=== PATIENT | male | born 1955 | race Caucasian/White ===

== ENCOUNTER 2020-11-14 17:27 | Emergency (ER) | payer MEDICARE ==
[2020-11-14 18:29] VITALS: BP 195/86
--- NOTE | 2020-11-14 18:40 | ER Document Report ---
ED Medical Screen (RME) - General Chief Complaint: Dizziness Stated Complaint: HIGH BLOOD PRESSURE Time Seen by Provider: 11/14/20 18:26 Mode of Arrival: Wheelchair Information source: Patient, Relative - Daughter - HPI Patient complains to provider of: dizziness, elevated bp, syncope Notes: 11/14/20 18:39 Patient here with complaints of some intermittent feelings of dizziness today. This happened earlier this morning and throughout the afternoon while he was at home. He actually had one episode where he felt he was going to pass out and had a syncopal episode on a carpeted floor without any head injury or other injury. Patient has a history of hypertension, he did not take his losartan/hydrochlorthiazide this morning. Currently does complain of a headache and some mild neck pain with intermittent feelings of dizziness. He also complains of occasional chest pain. No fever. No blood thinners. Exam: Nontoxic, no distress. Lungs clear to go throughout. Heart sounds normal. Pale nerves II through XII are grossly intact. Normal [id number]. Normal strength and sensation bilaterally. No pronator drift. An initial examination was made on the patient as part of the triage process, and it was determined a more comprehensive evaluation was necessary. Initial orders were placed and patient was transferred to another provider in the ED who assumed care and finished evaluation and plan. - Related Data Allergies/Adverse Reactions: No Known Allergies Allergy (Unverified 11/14/20 18:25) Home Medications: OTC suppliments/ losartan/hctz 100-25 states takes 3/4 of pill daily (RX for 1 tab daily) Past Medical History - Social History Chew tobacco use (# tins/day): No Frequency of alcohol use: None Drug Abuse: None Physical Exam - Vital signs Vitals: Temp Pulse Resp BP Pulse Ox 97.4 F 62 18 191/99 H 98 11/14/20 17:43 11/14/20 17:43 11/14/20 17:43 11/14/20 17:43 11/14/20 17:43 Course - Vital Signs Vital signs: Temp Pulse Resp BP Pulse Ox 97.4 F 63 20 195/86 H 98 11/14/20 17:43 11/14/20 18:28 11/14/20 18:28 11/14/20 18:28 11/14/20 18:28
--- NOTE | 2020-11-14 19:22 | RADIOLOGY REPORT (SQ) ---
EXAM DESCRIPTION: CHEST SINGLE VIEW IMAGES COMPLETED DATE/TIME: 11/14/2020 6:50 pm REASON FOR STUDY: dizziness, ches tpain COMPARISON: None. EXAM PARAMETERS: NUMBER OF VIEWS: One view. TECHNIQUE: Single frontal radiographic view of the chest acquired. RADIATION DOSE: NA LIMITATIONS: None. FINDINGS: LUNGS AND PLEURA: Ill-defined opacification in the retrocardiac left with slight blurring of the left hemidiaphragm. MEDIASTINUM AND HILAR STRUCTURES: No masses. Contour normal. HEART AND VASCULAR STRUCTURES: Heart normal in size. Normal vasculature. BONES: No acute findings. HARDWARE: None in the chest. OTHER: None. IMPRESSION: Cannot exclude a minimal left lower lobe pneumonia. TECHNICAL DOCUMENTATION: JOB ID: [id number] [employer]- All Rights Reserved Reading location - IP/workstation name: [email or web address]
--- NOTE | 2020-11-14 20:16 | RADIOLOGY REPORT (SQ) ---
EXAM DESCRIPTION: CT HEAD WITHOUT IV CONTRAST COMPLETED DATE/TME: 11/14/2020 18:59 CLINICAL HISTORY: 65 years, Male, dizziness, headache, syncope EXAM DESCRIPTION: CT HEAD WITHOUT CLINICAL HISTORY: dizziness, headache, syncope COMPARISON: None Available TECHNIQUE: Contiguous axial CT images of the head were obtained. Coronal and sagittal reconstructions were created from the axial data. This exam was performed according to our departmental dose-optimization program, which includes automated exposure control, adjustment of the mA and/or kV according to patient size and/or use of iterative reconstruction technique. FINDINGS: Axial images are not currently available. Addendum will be dictated when they are. There is no evidence of acute mass, mass effect, midline shift or hemorrhage. The ventricles and extra-axial CSF spaces are unremarkable. The brain parenchyma appears normal for the patient's age. No acute abnormalities of the bones is seen. IMPRESSION: No acute intracranial abnormality.
[2020-11-14 20:56] LABS: ABSOLUTE MONOCYTES (AUTO) 0.4 10^3/uL (0.1-1.4); ABSOLUTE NEUT (AUTO) 11.7 10^3/uL (1.7-8.2); BASOPHILS % (AUTO) 0.3 % (0-2); HEMATOCRIT 42.9 % (37.9-51.0); HEMOGLOBIN 14.6 g/dL (13.5-17.0); LYMPHOCYTES % (AUTO) 7.7 % (13-45); MEAN CORPUSCULAR VOLUME 88 fl (80-97); MONOCYTES % (AUTO) 3.2 % (3-13); PLATELET COUNT 185 10^3/uL (150-450); RED BLOOD COUNT 4.86 10^6/uL (4.35-5.55); RED CELL DISTRIBUTION WIDTH 13.6 % (11.5-14.0); SEGMENTED NEUTROPHILS % (AUTO) 88.8 % (42-78); TOTAL CELLS COUNTED % (AUTO) 100 %; WHITE BLOOD COUNT 13.2 10^3/uL (4.0-10.5)
[2020-11-14 21:00] LABS: INTERNATIONAL RATION (INR) 0.87; PROTHROMBIN TIME 12.1 SEC (11.4-15.4)
[2020-11-14 21:01] LABS: PARTIAL THROMBOPLASTIN TIME 27.9 SEC (23.5-35.8)
[2020-11-14 21:13] LABS: ALBUMIN 4.8 g/dL (3.5-5.0); ALKALINE PHOSPHATASE 155 U/L (38-126); ANION GAP 8 (5-19); ASPARTATE AMINO TRANSFERASE 45 U/L (17-59); BILIRUBIN,DIRECT 0.1 mg/dL (0.0-0.4); BILIRUBIN,TOTAL 0.6 mg/dL (0.2-1.3); BLOOD UREA NITROGEN 18 mg/dL (7-20); CALCIUM 9.6 mg/dL (8.4-10.2); CARBON DIOXIDE 31 mmol/L (22-30); CHLORIDE 99 mmol/L (98-107); GLUCOSE 126 mg/dL (75-110); POTASSIUM 4.3 mmol/L (3.6-5.0); TOTAL PROTEIN 8.4 g/dL (6.3-8.2)
--- NOTE | 2020-11-14 21:14 | ER Document Report ---
ED General - General Chief Complaint: Dizziness Stated Complaint: HIGH BLOOD PRESSURE Time Seen by Provider: 11/14/20 18:26 Mode of Arrival: Wheelchair - HPI Notes: Patient is a 65-year-old gentleman who presents the emergency department for evaluation of a syncopal episode. This morning he went to the bathroom, just to urinate. He washed his hands, walked out of the bathroom, and had a vertiginous type sensation. The room was spinning. He may have had some ringing in his ears but he does not quite remember. This lasted a few seconds, he sat down, and felt better. He had another episode similar to that later in the day. He had a third episode after finishing preparing dinner, at which point he slowly went down to his knees and had a full syncopal episode. This was witnessed. His upper arms were shaking, but then he came around. At this point he states he feels little bit weak but denies any other acute symptoms. He has had no recent URI. No fevers or chills. No anosmia. He denies any chest pain or shortness of breath. No diarrhea, eating and drinking normally. The patient notes that he did not take his blood pressure medication today, states "I just forgot." - Related Data Allergies/Adverse Reactions: No Known Allergies Allergy (Unverified 11/14/20 18:25) Home Medications: OTC suppliments/ losartan/hctz 100-25 states takes 3/4 of pill daily (RX for 1 tab daily) Past Medical History - General Information source: Patient, Relative - Daughter - Social History Smoking Status: Never Smoker Chew tobacco use (# tins/day): No Frequency of alcohol use: None Drug Abuse: None Family History: Reviewed & Not Pertinent - Past Medical History Cardiac Medical History: Reports: Hx Coronary Artery Disease - History of angioplasty, Hx Hypercholesterolemia, Hx Hypertension Pulmonary Medical History: Reports: None Neurological Medical History: Reports: Hx Seizures - Seizures in his 20s after head injury, none since age 27. Denies: Hx Cerebrovascular Accident Endocrine Medical History: Denies: Hx Diabetes Mellitus Type 2 Renal/ Medical History: Denies: Hx End Stage Renal Disease, Hx Peritoneal Dialysis, Hx Renal Insufficiency Malignancy Medical History: Reports None GI Medical History: Denies: Hx Cirrhosis, Hx Crohn's Disease, Hx Gastritis, Hx Ulcerative Colitis Musculoskeletal Medical History: Reports Other - Dupuytren's contractures fourth and fifth fingers bilaterally Review of Systems - Review of Systems Constitutional: No symptoms reported EENT: No symptoms reported Cardiovascular: See HPI Respiratory: No symptoms reported Gastrointestinal: No symptoms reported Genitourinary: No symptoms reported Musculoskeletal: No symptoms reported Skin: No symptoms reported Neurological/Psychological: See HPI Physical Exam - Vital signs Vitals: Temp Pulse Resp BP Pulse Ox 97.4 F 62 18 191/99 H 98 11/14/20 17:43 11/14/20 17:43 11/14/20 17:43 11/14/20 17:43 11/14/20 17:43 - Notes Notes: Vital signs reviewed, please refer to chart. Head is normocephalic, atraumatic. Pupils equal round, reactive to light. Neck is supple without meningismus. Heart is regular rate and rhythm. Lungs are clear to auscultation bilaterally. Abdomen is soft, nontender, normoactive bowel sounds throughout. Extremities without cyanosis, clubbing. Posterior calves are nontender. Peripheral pulses are equal. Skin is warm and dry. Patient is awake, alert, oriented x3. Cranial nerves II - XII are grossly intact without focal neurological deficits. Strength is plus 5 out of 5 bilateral upper and lower extremities. Sensation is intact. Reflexes symmetrical. Intact [id number], rapid alternating movements, [id number]. Course - Re-evaluation Re-evalutation: 11/14/20 21:30 Patient presents to the emergency department for evaluation. He had a vertiginous episode multiple times, and that he had syncope following it. His neurological exam here is normal. His ears are clear. On a teletypesetter monitor he is not showing any signs of ectopy or dysrhythmia, his heart rate has been in the 60s. I did say he could take his normal losartan/HCTZ from home, this was administered. Awaiting remainder of work-up, the patient is stable, we will continue to monitor. 11/14/20 21:38 I discussed the findings on the chest x-ray with patient. He has a very mild leukocytosis but no fevers, no cough, no shortness of breath. I doubt this clinical finding of pneumonia. I explained this to the patient as well as his daughter and they voiced understanding. He will follow up closely with his primary care provider. - Vital Signs Vital signs: Temp Pulse Resp BP Pulse Ox 98.6 F 63 23 H 195/86 H 100 11/14/20 22:41 11/14/20 18:28 11/14/20 21:00 11/14/20 18:28 11/14/20 21:00 - Laboratory Results Result Diagrams: 11/14/20 20:45 11/14/20 20:45 Laboratory Results Interpreted: 11/14/20 11/14/20 20:45 20:45 WBC 13.2 H Lymph % (Auto) 7.7 L Absolute Neuts (auto) 11.7 H Seg Neutrophils % 88.8 H Carbon Dioxide 31 H Glucose 126 H Alkaline Phosphatase 155 H Total Protein 8.4 H Critical Laboratory Results Reviewed: No Critical Results - Radiology Results Radiology Results Interpreted: 11/14/20 21:30 Chest X-Ray 11/14/20 18:37 IMPRESSION: Cannot exclude a minimal left lower lobe pneumonia. Head CT 11/14/20 18:37 IMPRESSION: No acute intracranial abnormality. Critical Radiology Results Reviewed: No Critical Results - EKG Interpretation by Me Additional EKG results interpreted by me: 11/14/20 21:38 Sinus mechanism with a rate of 65 bpm. First-degree AV block. IVCD. No acute ST changes concerning for ischemia or infarction. No old studies immediately available for comparison. Discharge - Discharge Clinical Impression: Vertigo Syncope Qualifiers: Syncope type: unspecified Qualified Code(s): R55 - Syncope and collapse Condition: Stable Disposition: HOME, SELF-CARE Instructions: Dizziness ([facility]), High Blood Pressure, Requiring Treatment ([facility]), Syncopal Episode ([facility]), Vertigo ([facility]) Additional Instructions: No clear cause was found your symptoms today. It seems likely that you had a vasovagal response to your vertigo which caused you to pass out. Please be sure to take your regular medications as prescribed. Follow-up closely with your primary care provider. If you develop worsening or new concerning symptoms of any sort, please return immediately to the emergency department for reevaluation.
--- NOTE | 2020-11-15 00:47 | EKG REPORT ---
SEVERITY:- ABNORMAL ECG - SINUS RHYTHM NONSPECIFIC IVCD WITH LAD : Confirmed by: Ba Denton 15-Nov-2020 00:45:43
== END 2020-11-14 22:05 | disposition home or self-care (01) ==
LOC: ER 17:27
DX: R55 Syncope and collapse (principal); R42 Dizziness and giddiness; D72.829 Elevated white blood cell count, unspecified; I44.0 Atrioventricular block, first degree; I25.10 Atherosclerotic heart disease of native coronary artery without angina pectoris; I10 Essential (primary) hypertension; Z79.899 Other long term (current) drug therapy
CPT/HCPCS: 36415; 70450; 71045; 80053; 83735; 84484; 85025; 85610; 85730; 93005; 93010; 99285